=== PATIENT | male | born 1940 | race Caucasian/White ===

== ENCOUNTER 2019-03-20 15:50 | Inpatient (IN) | payer OTHER ==
[~2019-03-20] VITALS: Ht 190.5 cm; Wt 115.6 kg
[~2019-03-20 15:50] MED LIST: ADALAT CC60 MG PO; ALBUTEROL2.5 MG/31 INH; AMOXICILLIN 50500 MG PO; ANTACID650 MG PO; ASPIRIN325 PO; ATORVASTATIN CA40 MG PO; CARVEDILOL3.125 MG PO; CEFDINIR300 MG PO; CHILDREN'S ASPI81 M1 PO; COREG6.25 MG PO; COUMADIN 5 MG TA5 M1 PO; DOXYCYCLINE 10100 MG PO; DUONEB 2.5-0.5 M3 ML INH; DYNACIN100 MG PO; EPOGEN2000 UNIT/ SUBQ; ERYTHROMYCIN250 M1 PO; FLOMAX0.4 MG PO; GLIPIZIDE 10 MG10 MG PO; HUMALOG100 UNIT/1 SUBQ; IPRAT-ALBUT 0.5-3 ML INH; JANUVIA50 MG PO; KLOR-CON 1010 MEQ PO; LANTUS100 UNIT/M SUBQ; LASIX 40 MG TAB40 M2 PO; LEVOTHYROXINE100 MC1 PO; LINZESS145 MCG PO; MIRALAX17 GM PO; NEURONTIN 300300 M1 PO; NORCO 5-325 TA1 EACH PO; NYSTATIN15 G3 TOP; OMEPRAZOLE40 MG PO; OSTERA TABLET1 EAC1 PO; PREDNISONE 5 MG5 M1 PO; REGLAN 10 MG TA10 MG PO; ROXICODONE5 M2 PO; SENNA8.6 MG PO; SENOKOT-S1 TA1 PO; TRAMADOL 50 MG50 MG PO; ULORIC40 MG PO; VITAMIN D1000 UNI1 PO; XARELTO10 MG PO; ZESTRIL40 MG PO
[2019-03-20 16:41] VITALS: BP 91/45
--- NOTE | 2019-03-20 17:05 | NUR ---
pt received to room 356 as a tx from [facility]. pt w/o family or friends w/ him at this time. pt oriented to room, meal times and staff. pt w/ lue dialysis fistula and a peripheral iv access to rt ac (functional and w/o concern for at this time). pt received dialysis this am at [facility]. pt w/ a chest tube to lt ant, lower chest w/ drsg clean, dry and intact connected to a clamped [facility] dry suction water seal drainage system. no air leak noted to chest tube insertion site. pt denies co pain, n/v/d and soa. pt on o2 @ 2lt nc. pt noted to be incontinent of stool upon transfer to his bed. pt aox4. pt states he does not ambulate and denies being a diabetic.
[2019-03-20 19:36] VITALS: BP 93/39
--- NOTE | 2019-03-20 19:46 | NUR ---
RECEIVED REPORT FROM [facility], CHEST TUBE CLAMPED AND AT THIS TIME ACCORDING TO DR. MALDONADO REPORTED.
[2019-03-20 23:30] VITALS: BP 95/46
[2019-03-21 04:16] VITALS: BP 88/45
[2019-03-21 05:59] LABS: HEMATOCRIT 28.4 % (42.0-52.0); HEMOGLOBIN 9.5 gm/dL (14.0-18.0); MCH 33.3 pg (26.0-34.0); MCHC 33.6 g/dL (28.0-37.0); MCV 99.1 fL (80.0-100.0); RBC 2.86 mil/uL (4.50-6.00); RDW 15.6 % (10.5-14.5); WBC 7.4 thou/uL (4.0-11.0)
[2019-03-21 06:19] LABS: CALCIUM 8.2 mg/dL (8.5-10.1); CREATININE 5.2 mg/dL (0.7-1.3); MAGNESIUM 1.9 mg/dL (1.8-2.4); POTASSIUM 4.3 mmol/L (3.5-5.1)
[2019-03-21 06:40] VITALS: BP 94/58
[2019-03-21 08:12] VITALS: BP 94/35
--- NOTE | 2019-03-21 12:33 | NUR ---
INITIAL ASSESSMENT: Received consult for discharge planning. SW reviewed chart and spoke with nursing and attending physician. Pt was transferred to [facility] from [facility]. Pt has chest tubes in place. Pt may need VATS. SW met with pt at bedside. Introduced role of SW. Pt is alert/orientated. Pt states he normally lives at home with his and son. Prior to admission, pt was using a walker. 2 steps to enter the home. No steps inside. Pt was not on O2 prior to admission. Pt's PCP is Dr. Kalen Grewal. SW is following to assist as needed with discharge planning.
[2019-03-21 15:20] VITALS: BP 103/42
[2019-03-21 16:56] LABS: HEMATOCRIT 29.3 % (42.0-52.0); HEMOGLOBIN 9.9 gm/dL (14.0-18.0); MCH 33.7 pg (26.0-34.0); MCHC 33.9 g/dL (28.0-37.0); MCV 99.2 fL (80.0-100.0); PLATELET COUNT 161 thou/uL (150-400); RBC 2.96 mil/uL (4.50-6.00); RDW 15.9 % (10.5-14.5); WBC 7.9 thou/uL (4.0-11.0)
[2019-03-21 17:12] LABS: APTT 34.8 Seconds (24.5-32.8); PROTIME 10.7 Seconds (9.3-11.4)
[2019-03-21 17:15] LABS: ALBUMIN 2.1 g/dL (3.4-5.0); CALCIUM 8.2 mg/dL (8.5-10.1); POTASSIUM 4.2 mmol/L (3.5-5.1); TOTAL BILIRUBIN 0.5 mg/dL (<0.1-1.0); TOTAL PROTEIN 4.9 g/dL (6.4-8.2)
[2019-03-21 17:18] LABS: ABSOLUTE NEUTROPHILS 4.8 thou/uL (1.4-8.2); BURR CELLS OCCASIONAL
--- NOTE | 2019-03-21 18:04 | NUR ---
ASSUMED CARE @ 0700 03/21/19, PT ASSESSEMENTS AND VSS COMPLETE PER MST STATUS. PT ALERT AND ORIENTED X 4, PT ABLE TO FOLLOW COMMANDS TO BEST ABILITY. PT ON 2L OF 02 SATS IN THE HIGH 90'S WHEN SPOT CHECKED. PT IN AFIB, MICHELLE RHYTHM, EDEMA PRESENT, PLEASE SEE PROCESS INTERVENTIONS, PIG-TAIL -CHEST TUBE IN PLACE, TO -20CM SUCTION, PER DR NICE'S ORDERS. PT IS SUPPOSED TO HAVE SURGERY TOMMORROW, CONSENT SIGNED AND WITNESSED. NPO AFTER MIDNIGHT. HD PT, SCHEDULED TO HAVE DIALYIS TOMORROW. PLAN OF CARE- CONT TO MONITOR.
[2019-03-21 20:35] VITALS: BP 90/44
[2019-03-22] VITALS (10 sets, daily range): BP systolic 100–156; BP diastolic 27–57
[2019-03-22 05:36] LABS: HEMATOCRIT 28.3 % (42.0-52.0); HEMOGLOBIN 9.7 gm/dL (14.0-18.0); MCHC 34.3 g/dL (28.0-37.0); MCV 99.1 fL (80.0-100.0); RBC 2.86 mil/uL (4.50-6.00); RDW 15.7 % (10.5-14.5); WBC 7.8 thou/uL (4.0-11.0)
[2019-03-22 05:47] LABS: CALCIUM 8.4 mg/dL (8.5-10.1); CREATININE 6.4 mg/dL (0.7-1.3); MAGNESIUM 1.8 mg/dL (1.8-2.4); POTASSIUM 4.2 mmol/L (3.5-5.1)
--- NOTE | 2019-03-22 06:17 | NUR ---
PT MAKING SLOW PROGRESS TOWARDS GOALS. PT NOTED TO BE IN AFIB AND PER DAY RN HAS A HX OF CHRONIC AFIB. RATES IN 40-50'S OVER NIGHT. DENIED ANY PAIN OVERNIGHT. CHEST TUBE LEFT ANTEROLATERAL SIDE WITH 100ML OUTPUT OVERNIGHT.
--- NOTE | 2019-03-22 11:04 | HC ---
[facility] [place] [address] CONSULTATION Name: BELTRAN SPICER EDER Room #: 356-P ADM IN M.R.#: [id number] Admission: 03/20/19 Attend Phys: Jalen Rod MD Discharge: Date of : 39 Report #: [id number] THIS REPORT FOR: //name// CC: Alexander Rod DATE OF SERVICE: 03/21/2019 NEPHROLOGY CONSULTATION ATTENDING PHYSICIAN: Dr. Aparicio. REASON FOR CONSULTATION: End-stage renal disease requiring dialysis. HISTORY OF PRESENT ILLNESS: The patient with end-stage renal disease for the last year or two out in [place]. He has developed recurrent and persistent left pleural effusion. He has been hospitalized at [facility] [place], has now had a chest tube in and it continues to drain. He was transferred over here with the thought of possible video-assisted thoracoscopy and procedure. PAST MEDICAL HISTORY: Atrial fibrillation, previous coronary bypass with decreased left ventricular ejection fraction, previous history of stroke, chronic anemia, hip and knee replacements. HOME MEDICATIONS: Reported to be atorvastatin 40 mg daily, levothyroxine 100 mcg daily, Flomax 0.4 mg daily, omeprazole 20 mg daily, metoclopramide 10 mg a.c. and at bedtime, Neurontin 600 mg t.i.d. and Linzess 145 mcg daily. FAMILY HISTORY: Positive for cancer and heart disease. SOCIAL HISTORY: No cigarettes or alcohol. Retired. REVIEW OF SYSTEMS: GENERAL: He has been feeling reasonably well. EYES: His vision is okay. ENT: Hearing okay, swallows okay. No mouth sores. ENDOCRINE: Positive for diabetes and thyroid disease. RESPIRATORY: Somewhat short winded with exertion. CARDIAC: No current chest pain or swelling. GASTROINTESTINAL: No nausea, vomiting, diarrhea or bloody stools. GENITOURINARY: A little bit of hesitant stream. NEUROLOGIC: Apparent history of cerebrovascular accident with little residual. PHYSICAL EXAMINATION: [facility] [address] [place] [address] CONSULTATION Name: BELTRAN SPICER [facility] Room #: 356-[facility] IN .R.#: [id number] Admission: 03/20/19 Attend Phys: Jalen Rod MD Discharge: Date of : 39 Report #: [id number] GENERAL: This is a reasonably well-appearing gentleman, in no acute distress. SKIN: Otherwise, unremarkable. SKELETAL: Well developed, well nourished. No amputations. HEENT: Extraocular movements are full. No visual impairment. No scleral icterus. Mucous membranes moist. Tongue, buccal mucosa benign. NECK: Supple, no carotid bruits. CHEST: Decreased breath sounds in the left base. HEART: Irregularly irregular, somewhat distant. ABDOMEN: Soft and nontender. EXTREMITIES: Trace ankle edema. NEUROLOGIC: Grossly intact. Left arm AV fistula intact. LABORATORY DATA: The potassium is 4.3, the creatinine is 5.2. The hemoglobin is 9.5. ASSESSMENT AND PLAN: 1. End-stage renal disease. We will continue routine dialysis Tuesdays, , and Saturdays on his schedule. 2. Persistent left pleural effusion, may need VATS procedure. 3. History of coronary artery bypass. 4. Chronic atrial fibrillation. 5. History of cerebrovascular accident with little residual. 6. Longstanding diabetes mellitus. 7. Multiple orthopedic surgeries. 8. Chronic hypotension. <ELECTRONICALLY SIGNED> By: Andrew Ferrell MD 03/22/19 1104 0937 2208 Andrew Ferrell MD /nt
--- NOTE | 2019-03-22 12:37 | HC ---
[facility] [place] [address] CONSULTATION Name: BELTRAN SPICER EDER Room #: 356-P ADM IN M.R.#: [id number] Admission: 03/20/19 Attend Phys: Jalen Rod MD Discharge: Date of : 39 Report #: [id number] THIS REPORT FOR: //name// CC: Alexander Rod DATE OF SERVICE: 03/21/2019 INFECTIOUS DISEASE CONSULTATION REASON FOR CONSULTATION: I was asked to evaluate concerning left chest exudative effusion. HISTORY OF PRESENT ILLNESS: The patient is a 78-year-old transferred from [facility] [place] after being treated for recurrent left exudative pleural effusion. He had undergone thoracentesis and subsequent chest tube placement. He failed to improve and is now transferred for consideration of video-assisted thoracoscopy. On 03/01/2019, he was admitted with shortness of breath. He was found to have a large left pleural effusion. He has had two thoracentesis. First effusion was bloody with lymphocytic predominance. Cultures remained negative for bacteria, fungus and AFB. He had associated pulmonary infiltrate, treated with course of antibiotics. The effusion recurred and ultimately a chest tube placed. No fever, chills or sweats. No increased abdominal pain. No nausea, vomiting or diarrhea. Does have a history of chronic renal failure, diabetes, Yonkers's syndrome, atrial fibrillation, congestive heart failure. ALLERGIES: None known. MEDICATIONS: As noted on his MAR including most recently doxycycline. PAST MEDICAL HISTORY: Diabetes, osteoarthritis, iron deficiency anemia, end-stage renal disease, left AV fistula, congestive heart failure, stroke, coronary bypass grafting, peripheral neuropathy, prostate cancer, thyroid disease, bilateral total knee arthroplasty, diabetes, hypertension, cardiomyopathy, hyperlipidemia. FAMILY HISTORY: Noncontributory. SOCIAL HISTORY: Nonsmoker, no significant alcohol intake. REVIEW OF SYSTEMS: Ten-point review was negative other than what is described above. PHYSICAL EXAMINATION: [facility] [address] [place] [address] CONSULTATION Name: BELTRAN SPICER Jerad Room #: 356-P [facility] IN M.R.#: [id number] Admission: 03/20/19 Attend Phys: Jalen Rod MD Discharge: Date of : 39 Report #: [id number] VITAL SIGNS: He is afebrile and hemodynamically stable. GENERAL: He is alert and cooperative and pleasant, in no acute distress. EYES: Without scleral icterus. MOUTH: Without mucositis. NECK: Supple, with no thyromegaly or mass. CHEST: Clear anteriorly with decreased breath sounds in the left posterior base. Left chest tube in place with no surrounding erythema or fluctuance. HEART: Regular without appreciable murmur, gallop or rub. ABDOMEN: Soft and nontender with no hepatosplenomegaly or mass. BACK: Nontender, without CVA tenderness. EXTREMITIES: With left upper extremity AV fistula. NEUROLOGIC: Strength in upper and lower extremities was normal. Cranial nerves intact. Mood normal with no evidence of depression or anxiety. SKIN: Without decubitus or rash. No palpable adenopathy. LABORATORY STUDIES: Hemoglobin 9.5, WBC 7.4, platelet 163,000. Creatinine 5.2. Chest x-ray, left effusion with associated atelectasis. IMPRESSION: Recurrent exudative left-sided pleural effusion. There is suggestion of associated infiltrate versus atelectasis. This is in the setting of anticoagulation for chronic atrial fibrillation. He also has end-stage renal disease. He has diabetes, hypothyroidism, benign prostatic hyperplasia, and history of prostate cancer. Specific etiology of the recurring effusion is not yet defined. Recommend VATS as planned for tomorrow, will stay off antibiotics at this point. We will repeat cultures from tissue and fluid analysis. Await pathology report. Culture for bacteria, fungus and AFB. Obtain microbiology reports from [facility] [place]. Follow serial laboratory studies. <ELECTRONICALLY SIGNED> By: Erwin Gallardo MD 03/22/19 1237 [id number] Erwin Gallardo MD /nt
--- NOTE | 2019-03-22 14:10 | NUR ---
SW reviewed chart and spoke with nursing and attending physician. Pt to have VATS today. Therapy to be ordered after procedure. SW is following to assist as needed with discharge planning.
--- NOTE | 2019-03-22 15:06 | NUR ---
ASSUMED PATIENT CARE AT 0700. A/ OX 4. STARTED HD AT 0715. TOLERATED WELL. WENT TO PRO OP AT 1430.
[2019-03-22 20:25] LABS: HEMATOCRIT 31.1 % (42.0-52.0); HEMOGLOBIN 10.5 gm/dL (14.0-18.0); MCH 33.4 pg (26.0-34.0); MCHC 33.9 g/dL (28.0-37.0); MCV 98.7 fL (80.0-100.0); RBC 3.15 mil/uL (4.50-6.00); RDW 15.6 % (10.5-14.5); WBC 10.3 thou/uL (4.0-11.0)
--- NOTE | 2019-03-22 22:58 | NUR ---
PT ARRIVED IN ICU FROM OR AT 2100. REPORT FROM [facility] AT 2034. PT LETHARGIC AND SLIGHTLY CONFUSED UPON ARRIVAL. WHEN ASKED, PT C/O 10/10 PAIN. L VAT SITE AND CHEST TUBE SITE INTACT. CHEST TUBE TO SUCTION AND IS PATENT, NO LEAK. GIVEN SLEEP ROOM FOR THE NIGHT. PT HAS BEEN SLEEPING SINCE BEING SETTLED IN, AND CONTINUES TO BE DROWSY WHEN AWAKENED. PO MEDS HELD D/T LETHARGY. WILL CONTINUE TO MONITOR.
[2019-03-23] VITALS (35 sets, daily range): BP systolic 114–173; BP diastolic 38–57
[2019-03-23 05:25] LABS: HEMATOCRIT 29.1 % (42.0-52.0); HEMOGLOBIN 9.9 gm/dL (14.0-18.0); MCH 33.6 pg (26.0-34.0); MCHC 33.9 g/dL (28.0-37.0); MCV 99.1 fL (80.0-100.0); RBC 2.94 mil/uL (4.50-6.00); RDW 15.4 % (10.5-14.5); WBC 8.5 thou/uL (4.0-11.0)
[2019-03-23 05:45] LABS: CALCIUM 7.9 mg/dL (8.5-10.1); MAGNESIUM 1.8 mg/dL (1.8-2.4); POTASSIUM 5.4 mmol/L (3.5-5.1); TOTAL BILIRUBIN 0.6 mg/dL (<0.1-1.0); TOTAL PROTEIN 4.9 g/dL (6.4-8.2)
--- NOTE | 2019-03-23 06:30 | NUR ---
PT ORIENTED X4, BUT REMAINS FAIRLY DROWSY. THIS MORNING, PT DENIES HAVING ANY PAIN. CHEST TUBE HAD 100 CC OUT SINCE ARRIVAL IN ICU. SHARMIN DRESSING OVER VAT SITE REMAINS DRY AND INTACT. WILL CONTINUE TO MONITOR.
--- NOTE | 2019-03-23 07:13 | NUR ---
PATIENT TRANSFERRED TO ICU, WILL AWAIT NEW OT ORDERS ONCE PATIENT IS MEDICALLY STABLE.
--- NOTE | 2019-03-23 13:51 | EKG ---
[place] [address] [facility] [place] [address] ELECTROCARDIOGRAM REPORT Name: MARIANGEL SPICERGera GAINES Room #: 247-P ADM IN M.R.#: [id number] Admission: 03/20/19 Attend Phys: Jalen Rod MD Discharge: Date of : 39 Report #: [id number] THIS REPORT FOR: //name// [facility] Test Date: 2019-03-21 Test Time: 17:20:42 Pat Name: BELTRAN SPICER Department: Room: [facility] Gender: M Piano Teacher: Mike ROSSI : 1940 Requested By: Kalen Martinez Order Number: [id number] MD: Marco A Bernard Measurements Intervals [place] Rate: 54 P: CO: QRS: -38 QRSD: 141 T: -22 QT: 456 QTc: 433 Interpretive Statements Atrial fibrillation Right bundle branch block Probable inferior infarct, age indeterminate No previous ECG available for comparison Electronically Signed On 03-23-2019 13:50:58 CDT by Marco A Bernard [email or web address] <ELECTRONICALLY SIGNED> By: Marco A Bernard MD, [facility] 03/23/19 1350 1720 19 Marco A Bernard MD, FACC /EPI
--- NOTE | 2019-03-23 15:56 | NUR ---
KYLEE reviewed chart and spoke with nursing and attending physician. Pt is s/p left thoracotomy with decortication. Chest tube in tact. Therapy ordered to evaluate pt for recommendation for discharge needs. SW met with pt at bedside. Pt is on hemodialysis on T-R-S. Pt states he goes to a [facility] close to home in [place]. SW will follow up with [facility] on Tuesday. Pt has orders to transfer out of ICU. No weeken discharge planned. KYLEE is following to assist as needed with discharge planning.
--- NOTE | 2019-03-24 00:15 | NUR ---
PT A&O X4 AND DROWSY. DIFFICULTY OBTAINING IV ACCESS AFTER EJ WAS LEAKING. VASCULAR ACCESS TEAM ABLE TO REPOSITION EJ, SO THAT IT WAS ABLE TO BE USED. WHEN LOOKING FOR PIV, IV NURSE FOUND CLOT FORMATION IN R UA. Adrian MYERS CHEMICAL TEST ENGINEER NOTIFIED AND ORDER OBTAINED FOR US OF R ARM IN AM. PT C/O OF PAIN AT VAT AND CT SITE, FENTANYL GIVEN. PT MOVED TO CCU AT 0000. REPORT GIVEN TO WILFRID AT 2300. MULTIPLE ATTEMPTS TO REACH WERE MADE, EVENTUALLY MESSAGE WAS LEFT STATING THAT WE WERE MOVING HER TO ROOM 218. ALSO, PT CLAIMS THAT HE HAD GLASSES HERE, BUT NONE WERE FOUND AMOUNG HIS BELONGINGS. UNABLE TO ASK ABOUT THEM.
[2019-03-24 00:22] VITALS: BP 106/32
[2019-03-24 03:06] LABS: HEP B SURFACE Ab(ANTI-HBS Non Reactive (()); HEPATITIS B SURFACE AG Negative (Negative)
[2019-03-24 04:57] VITALS: BP 114/33
[2019-03-24 05:33] LABS: HEMATOCRIT 30.6 % (42.0-52.0); HEMOGLOBIN 10.2 gm/dL (14.0-18.0); MCH 32.9 pg (26.0-34.0); MCHC 33.3 g/dL (28.0-37.0); MCV 98.7 fL (80.0-100.0); RBC 3.1 mil/uL (4.50-6.00); RDW 15.9 % (10.5-14.5); WBC 10.2 thou/uL (4.0-11.0)
[2019-03-24 05:52] LABS: CALCIUM 8.1 mg/dL (8.5-10.1); MAGNESIUM 1.8 mg/dL (1.8-2.4); POTASSIUM 5.3 mmol/L (3.5-5.1)
[2019-03-24 05:56] LABS: CREATININE 5.3 mg/dL (0.7-1.3)
--- NOTE | 2019-03-24 08:36 | NUR ---
ASSUME CARE AT 0000 FROM ICU STAFF. PT STABLE. COMPLAINS OF INCISIONAL PAIN. FENTANYL GIVEN FOR PAIN. LEFT CHEST TUBE IN PLACE/DRESSING REINFORCED ASSESSMENT CHARTED. POOR TOLERANCE TO ACTIVITY. PROGRESSING MODERATELY TO POC. PLAN IS TO CONTINUE TO MONITOR INCISION SITE AND OPREVENT INFECTION. WILL CONTINUE TO MONITOR AND FOLLOW WITH POC
[2019-03-24 09:03] VITALS: BP 107/35
--- NOTE | 2019-03-24 12:15 | O ---
[facility] [place] [address] OPERATIVE REPORT Name: BELTRAN SPICER EDER Room #: 218-P ADM IN M.R.#: [id number] Admission: 03/20/19 Attend Phys: Jalen Rod MD Discharge: Date of : 39 Report #: [id number] THIS REPORT FOR: //name// CC: Alexander Rod DATE OF SERVICE: 03/22/2019 PREOPERATIVE DIAGNOSIS: Empyema, left chest. POSTOPERATIVE DIAGNOSIS: Trapped lung, left chest, presumably post-empyema. PROCEDURES PERFORMED: Bronchoscopy, left video-assisted thoracoscopy, left thoracotomy with decortication. SURGEON: Kalen Martinez M.D. TRANSIT AUTHORITY POLICE OFFICER: BA Avendaño. ANESTHESIA: General. INDICATIONS: The patient is a 78-year-old transferred from [facility] with a persistent left pleural effusion. The patient had 2 thoracenteses of approximately 2 liters of exudative fluid. Pigtail catheter was left in place and there has been persistent pleural drainage and the patient was sent here for evaluation and treatment. FINDINGS AND TECHNIQUE: After general anesthesia was established, flexible diagnostic bronchoscopy was performed. No specific endobronchial lesions were noted, however, the tracheobronchial tree was packed with thick white secretions and it took some time to remove these tenacious secretions. The double lumen tube was placed and its position ascertained endoscopically. The patient was positioned with left side up. Exposure was obtained through typical video-assisted thoracoscopy ports. We were unable to enter the chest because the lung was adherent to the chest wall; therefore, an incision was made to perform a posterolateral thoracotomy. Chest was entered through an appropriate interspace. The visceral and parietal pleura were fused together and there was a fibrous peel over the lung that was preventing complete expansion. There were several areas of loculated fluid, but largely the problem was trapped lung. We performed a decortication by removing the fibrous envelope from the upper and lower lobe using a combination of sharp and blunt dissection. The visceral peel [address] [address] OPERATIVE REPORT Name: BELTRAN SPICER [facility] Room #: 218-P ADM IN M.R.#: [id number] Admission: 03/20/19 Attend Phys: Jalen Rod MD Discharge: Date of : 39 Report #: [id number] was removed and submitted for pathology. When we had freed the lung satisfactorily, the chest was irrigated with antibiotic solution. Two chest tubes were brought through separate stab wounds. The chest was closed in layers and the patient was taken to the recovery area in satisfactory condition having tolerated the procedure well. All counts were reported as correct. <ELECTRONICALLY SIGNED> By: Kalen Martinez MD 03/24/19 1215 1645 1710 Kalen Martinez MD /nt
[2019-03-24 16:49] VITALS: BP 85/35
--- NOTE | 2019-03-24 16:59 | NUR ---
ASSUMED CARE OF PATIENT AT 0700. PATIENT IS A&O X 4. FLAT AFFECT. PATIENT COMPLAINS OF LEFT SIDED FLANK PAIN AT INCISION SITE. CHEST TUBE IN PLACE AND CHAMBER. ASSESSMENT CHARTED. PATIENT IS RESTING COMFORTABLY AND CONTROLLING PAIN WITH IV FENTANYL. IS AT BEDSIDE. PATIENT IS APPROPRIATELY REQUESTING PAIN MEDICINE. PATIENT AWAITING HEMODIALYSIS THIS AFTERNOON. CONTINUE WITH POC.
[2019-03-24 19:59] VITALS: BP 127/56
[2019-03-25] VITALS (7 sets, daily range): BP systolic 75–154; BP diastolic 35–87
--- NOTE | 2019-03-25 01:29 | NUR ---
HEMO DIALYSIS COMPLETED AT 2245HRS. 1.5L FLUID REMOVED. PT TOLERATED HEMO DIALYSIS WELL. PT RESTING COMFORTABLY.
--- NOTE | 2019-03-25 05:28 | NUR ---
ASSUMED CARE OF PT AT 1900HRS. PT IS AOX4 AND LETS NEEDS BE KNOWN. FALL PRECAUTION IN PLACE. PT IS ANURIC THUS UA CANNOT BE COLLECTED. DIALYSIS SCHEDULE IS TUESDAY, TUESDAY AND TUESDAY. DIALYSIS COMPLETED THIS SHIFT. CHEST TUBE INPLACE AND NO AIR LEAK NOTED WITH -20 SUCTION. PT DID NOT REQUEST PAIN MEDS. PT WAS COMFORTABLE AND SLEPT PART OF THE SHIFT. NO S/S OF ACUTE DISTRESS. WILL CONTINUE TO MONITOR.
--- NOTE | 2019-03-25 18:29 | NUR ---
ASSESSMENT CHARTED - MEDS PER SEP - GIVEN LORTAB X 2 DOSES FOR CO'S OF PAIN WITH YANCY EFFECT - PATIENT WITH CHEST TUBES REMAINING INSITU TO LEFT CHEST AREA. NO BUBBLING OR TIDDLING NOTED IN [facility]. PT MARY DIET AND FLUIDS. NO CO'S OF NAUSEA. DRESSING TO DIALYSIS CATH REMAINS C/D/I. PT WTH MOSIT COUGH AT TIMES - SMALL AMOUNT OF THICK SPUTUM EXPECTORATED. PT WITH NO CO'S AT THE PRESENT TIME.
[2019-03-26] VITALS (9 sets, daily range): BP systolic 87–117; BP diastolic 37–57
[2019-03-26 04:00] LABS: HEMATOCRIT 25.2 % (42.0-52.0); HEMOGLOBIN 8.5 gm/dL (14.0-18.0); MCH 33.5 pg (26.0-34.0); MCHC 33.8 g/dL (28.0-37.0); RBC 2.54 mil/uL (4.50-6.00); RDW 15.2 % (10.5-14.5); WBC 8.4 thou/uL (4.0-11.0)
[2019-03-26 04:23] LABS: INR 1.1; PROTIME 11.3 Seconds (9.3-11.4)
[2019-03-26 04:33] LABS: ALBUMIN 1.8 g/dL (3.4-5.0); CALCIUM 7.7 mg/dL (8.5-10.1); CREATININE 4.8 mg/dL (0.7-1.3)
--- NOTE | 2019-03-26 04:44 | NUR ---
ASSESSMENT DOCUMENTED.PT RESTING IN NO ACUTE DISTRESS AT THIS TIME.A/OX3 WITH FORGETFULNESS.VSS.HYPOTENSIVE THIS SHIFT W/SBP IN 70S.PT WAS PLACED ON TRENDELENBURG POSITION W/O IMPROVEMENT,PT SEEMS VERY LETHARGIC.FOLLOW COMMANDS APPROPRIATELY,NO FEVER.CUSTOMER COUNTER REPRESENTATIVE NOTIFIED A BOLUS OF 500CC WAS ORDERED.BLOOD PRESSURE IMPROVED TO 90S-100S SYSTOLICALLY.RA WITHOUT RESP DISTRESS.HAVING CONGESTED COUGH WITH WEAK COUGH,REFUSING BREATHING TREATMENTS.CHEST TUBE IN PLACE TO SUCTION -20CM.SHARMIN DRESSING INTACT.SUCTION PROVIDED.PT DENIES PAIN OR ANY OTHER DISCOMFORT AT THIS TIME.WILL CONT TO MONITOR PER POC.
--- NOTE | 2019-03-26 16:06 | PATH ---
[facility] [address] [place] [address] PATHOLOGY RPT PROCEDURE Name: MARIANGEL SPICERGera GAINES Room #: 218-P ADM IN M.R.#: [id number] Admission: 03/20/19 Date of : 39 Discharge: Report #: [id number] Path Case #: [id number] [facility] Accession Number: [id number] . 01 Material submitted: . pleura - LEFT PLEURAL EXUDATE/PEEL. Modifiers: left . 01 Clinical history: . Left pleural effusion . 02 Diagnosis: "Left pleural exudate/peel", decortication/pleural resection: - Pleura with reactive changes including acute and chronic inflammation, necrosis, edema, fibroblastic proliferation and granulation tissue consistent with empyema. (CLW:lindy; 03/26/2019) QMS/03/26/2019 . 02 Electronically signed: . Ramona Jameson MD, Pathologist NPI- [id number] . 01 Gross description: . The specimen is received in formalin, labeled "Doug Spicer, left pleural exudate/peel". Received are multiple segments of pale chopra to pink-schaeffer pleural tissue measuring 6.1 x 5.5 x 1.0 cm in aggregate dimensions. No distinct nodules or lesions are noted grossly. Exudate is not grossly identified. The specimen is submitted representatively in cassette A1. (CAA; 03/23/2019) QAC/QAC . 02 Pathologist provided ICD-10: R09.1, J86.9 . 02 CPT . 159033 Specimen Comment: A courtesy copy of this report has been sent to Specimen Comment: [phone], , . Specimen Comment: Report sent to ,DR SORENSON / DR RODRIGUEZ Performed at: [address], [place], [place] [id number] MD Thomas Carrasco MD Phone: [phone] Performed at: [address] [id number] MD Jamee Palacios MD Phone: [phone]
--- NOTE | 2019-03-26 19:00 | NUR ---
Pt drowsy today. Slept intermittently. Trouble answering orientation questions but able to communicate needs. OT/PT worked with pt. OOB to chair. Heavy return back to bed. Pt unable to support his weight without assist of two people. here near end of day and assisted with dinner. Report to oncoming RN.
[2019-03-27 00:15] VITALS: BP 97/52
--- NOTE | 2019-03-27 03:34 | NUR ---
ASSESSMENT DOCUMENTED.PT BEEN SLEEPING MOST OF THE NIGHT.EASY TO AROUSE.A/OX2-3 WITH CONFUSION IN AND OUT.FOLLOWS COMMANDS APPROPRIATELY BUT GET IRRITABLE DURING ASSESSMENT AND WHILE ASKING QUESTION.PT JUST WANTS TO BE LEFT ALONE TO SLEEP.VSS.RA W/ RESP DISTRESS.REMAINS AFIB ON MONITOR.ANURIC.DIALYSIS SCHEDULED FOR TODAY.SHARMIN DRESSING INTACT,CT SITE DRESSING INTACT,NO DRAINAGE NOTED.PT/OT ON BOARD.PT PROGRESSING SLOWLY TO DISCHARGE GOAL.WILL CONT TO MONITOR PER POC.
[2019-03-27 04:55] LABS: INR 1.1; PROTIME 11.4 Seconds (9.3-11.4)
[2019-03-27 05:06] VITALS: BP 109/78
[2019-03-27 07:43] VITALS: BP 111/50
--- NOTE | 2019-03-27 09:02 | NUR ---
ASSUMED CARE OF PT FOR DAY SHIFT, A&0X4, A LITTLE RESISTANT TO ANSWER QUESTIONS, STATES THEM IN AN IRRITABLE TONE, THEN IMMEDIATELY APOLOGIZES. SAID HE DIDN'T GET ANY SLEEP. BFAST AT BEDSIDE YET HE'D RATHER SLEEP. IN THE MIDST OF DIALYSIS, C/O PAIN IN BACK, HELPED HIM REARRANGE HIS POSITION. CARDIAC MONITORED, ENCOURAGED HIM TO USE CALL LIGHT FOR ANY NEEDS AND SHOWED HIM HOW TO TURN ON TELE, HE WANTED GO [facility]. WILL CONTINUE TO MONITOR
--- NOTE | 2019-03-27 10:47 | NUR ---
met with patient who was rec dialysis. Sp with and son who entered room. Discussed post acute care. Patient reports he has been at [facility] in past. He is agreeable for referral to [facility]. Patient reports they transported to/from dialysis with no charge. Casemgt following.
[2019-03-27 12:00] VITALS: BP 135/54
--- NOTE | 2019-03-27 13:17 | NUR ---
[facility] TO REVIEW PT NEEDING SKILLED STAY. DCP TO FOLLOW.
[2019-03-27 17:05] VITALS: BP 97/55
[2019-03-27 19:15] VITALS: BP 131/64
[2019-03-28 04:05] VITALS: BP 91/47
[2019-03-28 05:08] LABS: INR 1.2; PROTIME 12.1 Seconds (9.3-11.4)
--- NOTE | 2019-03-28 05:08 | NUR ---
PATIENTS CARES WAS ASSUMED AT SHIFT CHANGE. PATIENT WAS ASSESSED AND MEDS WERE PASSED. HOURLY ROUNDING WAS DONE, PATIENT DID APPER TO SLEEP WELL THE MAJORITY OF THIS SHIFT. PATIENT IS A MAX ASSIST TO TRANSFER. BED ALARM IS ON. THE BED IS IN A LOW AND LOCKED POSITION.
[2019-03-28 08:25] VITALS: BP 110/46
--- NOTE | 2019-03-28 11:09 | NUR ---
WOUND CONSULT; CONSULTED FOR A WOUND TO THE RIGHT BUTTOCK. THE WOUND HAS LINEAR LINES SUGGESTIVE OF FRICTION SHEARING. THE RIGHT HIP HAS AN AREA OF BLANCHABLE ERYTHEMA. THE CENTER OF THIS AREA IS DARKER AND UNABLE TO DETERMINE IF IT IS A DTI AT HIS TIME, IT IS SUSPICIOUS OF A DTI. RECOMMENDATIONS ZGUARD TO RIGHT BUTTOCKS COVER WITH A BOARDERED FOAM. OBSERVE THE RIGHT HIP FOR NOW. DISCUSSED WITH ZACK
[2019-03-28 11:45] VITALS: BP 98/44
--- NOTE | 2019-03-28 14:27 | NUR ---
FOLLOWING FOR DC PLANNING. CLINICAL INFO REVIEWED AND PER DR. KINCAID, PT MEDICALLY STABLE FOR DC TO SKILLED REHAB. PT CHOICE IS [facility] AND REFERRAL FAXED 03/17/19 BUT HAVE BEEN UNSUCCESSFUL ON SEVERAL ATTEMPTS TO CNNECT WITH ADMISSIONS DEPT FOR DECISION ON ACCEPTANCE. CM DIRECTOR ATTEMPTED TO REACH OUT TO FACILITY D.O.N. BUT NOT REACHED. RAFFI FROM [facility] AT [facility] AND ABLE TO ASSIST WITH NOTIFYING SILVA IN ADMISSIONS AT [facility]. SILVA NOTIFIED DC CLAMSHELL ENGINEER AT 1400 SHE HAD REFERRAL AND WILL HAVE INTELLIGENCE AGENT AND CALL WITH DECISION TODAY. WILL NEED INSURANCE AUTH FOR SKILLED REHAB.
[2019-03-28 16:09] VITALS: BP 105/42
--- NOTE | 2019-03-28 17:42 | NUR ---
ASSESSMENT CHARTED - MEDS PER SEP - NO CO'S OF PAIN OR NAUSEA - MARY DIET AND FLUIDS. SEEN BY PHYS THERAPY THIS AM - PT UP ON THE SIDE OF THE BED - DID NOT GET TO THE CHAIR REPORTED HE DID YESTERDAY - BREAKDOWN TO BOTTOM NOTED - MERCHANDISE BUYER NOTIFIED DRESSING APPLIED AND TO BE CHANGED DAILY. SHARMIN DRESSING REMAINS INSITU - DRESSING TO L CHEST TUBE SITE C/D/I. PT HAS BEEN SLEEPING ALOT OF THE DAY. PT DIFFICULT TO ASSESS MENTATION LEES DUE TO BEING [place]. NOT [place]USS WHAT PATIENT ACTUALLY HEARS. NO CO'S AT THE PRESENT TIME.
[2019-03-28 19:53] VITALS: BP 131/37
[2019-03-29 05:15] VITALS: BP 124/49
[2019-03-29 05:21] LABS: INR 1.3; PROTIME 13.8 Seconds (9.3-11.4)
--- NOTE | 2019-03-29 05:49 | NUR ---
PATIENTS CARES WERE ASSUMED AT SHIFT CHANGE. PATIENT WAS ASSESSED AND MEDS WERE PASSED. PATIENT SLEEP THE MAJRITY OF THIS SHIFT. HOURLY ROUNDING WAS DONE THE BED IS IN A LOW AND LOCKED POSITION. THE BED ALARM IS ON.
[2019-03-29 08:14] VITALS: BP 118/49
[2019-03-29 12:30] VITALS: BP 114/47
[2019-03-29 14:19] VITALS: BP 118/49
[2019-03-29 14:35] VITALS: BP 118/49
--- NOTE | 2019-03-29 14:40 | NUR ---
Auth confirmed kaycee Gil in admissions at [facility]. They can accept the pt this evening around 5:30 to 6pm. [facility] arranged for 5:30pm pickup due to pt's weakness after dialysis today. He requires max assist of several people for transfers and would not be able to sit in a w/c van for the duration of the trip. Pt's dialysis clinic is aware of dc and to resume him on Tuesday. He goes to the [facility] clinic with a 9:30am chair time T--Sat. [facility] to setup transport. The clinic has a lift for transfers. DC technical planner to fax final orders to both the SNF and the clinic. Nursing and the pt updated as well as the attending. Nursing to call report to [phone]. Chart copy to be sent with the pt.
--- NOTE | 2019-03-29 14:40 | NUR ---
WOUND CARE FOLLOW UP; THE WOUNDS HAVE IMPROVED SINCE LAST EVAL. LESS DRAINAGE,LESS ERYTHEMA TO THE PERIWOUND. THE RIGHT HIP AREA THAT WAS SUGGESTIVE A DTI IS SMALLER AND I AM HOPEFUL IT WON'T ADVANCE. THE PATIENT STATES THESE AREAS FEEL BETTER. RECOMMENDATION; D/C THE FOAM DRESSING TO THE RIGHT BUTTOCK AND USE ONLY ZGUARD. DISCUSSED WITH STAFF
[2019-03-29] MEDS ORDERED: LIPITOR40 MG PO (14:52)
[2019-03-29] MEDS ORDERED: MIRALAX17 GM PO (14:52)
[2019-03-29] MEDS ORDERED: MUPIROCIN22 GM NASAL (14:52)
[2019-03-29] MEDS ORDERED: IPRAT-ALBUT 0.5-3 ML INH (14:52)
[2019-03-29] MEDS ORDERED: TYLENOL325 MG PO (14:52)
[2019-03-29] MEDS ORDERED: COUMADIN 5 MG TA5 M1 PO (14:52)
[2019-03-29] MEDS ORDERED: COUMADIN 2 MG TA2 M1 PO (14:52)
--- NOTE | 2019-03-29 15:51 | NUR ---
FAXED DC ORDERS/SUMMARY TO [facility] LEFT MSG WITH ALIREZA IN ADM THAT DC ORDERS FAXED AND TRANSPORTATION ARRANGED BY AMBULANCE ([facility]) FOR [id number]. LEFT MSG WITH PT'S ON VOICEMAIL AND SPOKE WITH PT'S SON OF DC AND TIME OF TRANSPORT. ALSO FAXED DIALYSIS FLOW SHEETS AND DC SUMMARY TO [facility].
--- NOTE | 2019-03-29 17:30 | NUR ---
ASSUMED CARE AT SHIFT CHANGE, ALERT X3, AND FORGETFUL. VSS. SHARMIN DRESSING REMOVED PER ORDERS. Q2 POSITIONED AND PATIENT GIVEN PARTIAL BATH TODAY. DIALIZED TODAY. REPORT GIVEN TO ZACK PRESCOTT AND PATIENT DISCHARGED TO [facility]
--- NOTE | 2019-03-31 12:36 | HC ---
[facility] [place] [address] CONSULTATION Name: BELTRAN SPICER EDER Room #: 218-P [facility] M.R.#: [id number] Admission: 03/20/19 Attend Phys: Jalen Rod MD Discharge: 03/29/19 Date of : 38 Report #: [id number] THIS REPORT FOR: //name// CC: Alexander Rod DATE OF SERVICE: 03/21/2019 REASON FOR CONSULT: The patient is an 79-year-old transferred from [facility]. The patient was treated for an exudative left pleural effusion. The patient had 2 thoracenteses and finally had a chest catheter placement. The chest catheter continued to drain approximately 200-300 mL a day and the lung had not fully reexpanded and the patient was sent here for our consideration. Cultures were always negative. PAST MEDICAL HISTORY: Significant for diabetes, osteoarthritis, iron deficiency anemia, end-stage renal disease, on dialysis through a left AV fistula, heart failure, stroke, previous coronary artery bypass surgery, prostate cancer, thyroid disease, hypertension, hyperlipidemia. ALLERGIES: None known. MEDICATIONS: As noted on the MAR including doxycycline. FAMILY HISTORY: Not significant for empyema. SOCIAL HISTORY: Denies tobacco use. No significant alcohol. REVIEW OF SYSTEMS: RESPIRATORY: Positive for shortness of breath, which led to the discovery of the effusion. The patient appears to have been in and out of the hospital with pneumonia prior to the onset of the pleural effusion. Past history is also significant for chronic atrial fibrillation. It is not clear whether the patient was anticoagulated for this at home. Other details of the review of systems per the medical history of Dr. Aparicio. PHYSICAL EXAMINATION: VITAL SIGNS: Temperature 36.7, heart rate 53, blood pressure 94/35. HEENT: No scleral icterus. There is a mild arcus. NECK: No mass, no bruit. [facility] [address] [place] [address] CONSULTATION Name: BELTRAN SPICER EDER Room #: 218-P [facility].#: [id number] Admission: 03/20/19 Attend Phys: Jalen Rod MD Discharge: 03/29/19 Date of : 38 Report #: [id number] CHEST: Clear on the right. Decreased breath sounds on the left. HEART: Rhythm regular. ABDOMEN: Soft. EXTREMITIES: Trace edema. No clubbing or cyanosis. NEUROLOGIC: No motor or sensory dysfunction. MUSCULOSKELETAL: No asymmetry or deformity. PSYCHIATRIC: The patient is oriented and appropriate, but appears to be somewhat chronically ill and weak. SKIN: No rash or infection. We note chest tube from left chest attached to atrium canister. IMPRESSION: The patient has what appears to be a trapped left lung with possible empyema. We have recommended thoracoscopy with possible decortication as appropriate. Risks and details of this were discussed. Options and alternatives were reviewed. The patient understands all of this and wishes to proceed. Thank you for the consult. <ELECTRONICALLY SIGNED> By: Kalen Martinez MD 03/31/19 1236 [id number] Kalen Martinez MD /nt
== END 2019-03-29 18:28 | DRG 163 ==
LOC: 3W 15:50 → 2N 16:34 → ICU 16:34 → 3W 17:54 → TBA 03-22 14:49 → ICU 03-22 22:22 → 2N 03-23 23:51
PROVIDERS: Internal Medicine; Internal Medicine Nephrology; Nurse Practitioner Family; Physician Assistant; Surgery Vascular Surgery; ADMIT Internal Medicine
DX: J86.9 Pyothorax without fistula (principal); N18.6 End stage renal disease; E43 Unspecified severe protein-calorie malnutrition; J90 Pleural effusion, not elsewhere classified; I42.9 Cardiomyopathy, unspecified; I13.2 Hypertensive heart and chronic kidney disease with heart failure and with stage 5 chronic kidney disease, or end stage renal disease; I82.611 Acute embolism and thrombosis of superficial veins of right upper extremity; I50.22 Chronic systolic (congestive) heart failure; I48.2 Chronic atrial fibrillation; E11.51 Type 2 diabetes mellitus with diabetic peripheral angiopathy without gangrene; E03.9 Hypothyroidism, unspecified; E11.22 Type 2 diabetes mellitus with diabetic chronic kidney disease; N40.0 Benign prostatic hyperplasia without lower urinary tract symptoms; E11.43 Type 2 diabetes mellitus with diabetic autonomic (poly)neuropathy; K31.84 Gastroparesis; I25.10 Atherosclerotic heart disease of native coronary artery without angina pectoris; K21.9 Gastro-esophageal reflux disease without esophagitis; D63.8 Anemia in other chronic diseases classified elsewhere; E78.5 Hyperlipidemia, unspecified; M19.90 Unspecified osteoarthritis, unspecified site; I95.9 Hypotension, unspecified; E87.5 Hyperkalemia; J94.1 Fibrothorax; E11.42 Type 2 diabetes mellitus with diabetic polyneuropathy; Z96.653 Presence of artificial knee joint, bilateral; Z85.46 Personal history of malignant neoplasm of prostate; Z79.01 Long term (current) use of anticoagulants; Z95.1 Presence of aortocoronary bypass graft; Z68.31 Body mass index [BMI] 31.0-31.9, adult; Z99.2 Dependence on renal dialysis; Z86.73 Personal history of transient ischemic attack (TIA), and cerebral infarction without residual deficits; Z79.899 Other long term (current) drug therapy; Z80.8 Family history of malignant neoplasm of other organs or systems; Z82.49 Family history of ischemic heart disease and other diseases of the circulatory system
CPT/HCPCS: 10081; 10203; 10779; 10879; 32100; 47405; 50010; 50101; 50386; 50417; 51301; 52265; 54118; 56524; 56525; 56526; 56527; 56528; 57116; 62110; 62900; 65020; 65040; 65045; 65105; 70005

== ENCOUNTER 2019-04-06 01:12 | Observation (INO) | payer OTHER ==
[~2019-04-06] VITALS: Ht 190.5 cm; Wt 114.4 kg
[~2019-04-06 01:12] MED LIST changes: +COUMADIN 2 MG TA2 M1 PO; +LIPITOR40 MG PO; +MUPIROCIN22 GM NASAL; +TYLENOL325 MG PO
[2019-04-06 02:50] VITALS: BP 89/47
--- NOTE | 2019-04-06 04:24 | NUR ---
PATIENT DIRECTLY ADMITTED FROM [facility]. ALERT TO SELF ONLY, RE-ORIENTED TO TIME/PLACE. NO COMPLAINTS OF DISCOMFORT OR CHEST PAIN. A-FIB ON INSTALLATION HELPER. TURNED Q2H. PATIENT EDUCATED PLANER OPERATOR / GRADER LIGHT AND FALL PRECAUTIONS. PLAN OF CARE DISCUSSED. NO SIGNS OF ACUTE DISTRESS NOTED AT THIS TIME. WILL CONTINUE TO MONITOR.
[2019-04-06 06:07] LABS: CALCIUM 8.2 mg/dL (8.5-10.1); CREATININE 3.4 mg/dL (0.7-1.3); MAGNESIUM 1.7 mg/dL (1.8-2.4); POTASSIUM 3.9 mmol/L (3.5-5.1)
[2019-04-06 07:43] VITALS: BP 115/43
[2019-04-06 10:34] LABS: HEMOGLOBIN 8.7 gm/dL (14.0-18.0)
[2019-04-06 10:36] LABS: HEMATOCRIT 26.9 % (42.0-52.0); MCH 32.2 pg (26.0-34.0); MCHC 32.3 g/dL (28.0-37.0); MCV 99.5 fL (80.0-100.0); PLATELET COUNT 247 thou/uL (150-400); RBC 2.71 mil/uL (4.50-6.00); RDW 15.5 % (10.5-14.5); WBC 12.6 thou/uL (4.0-11.0)
[2019-04-06 11:29] LABS: ABSOLUTE NEUTROPHILS 5.9 thou/uL (1.4-8.2); METAMYELOCYTES 1 %
[2019-04-06 11:30] LABS: ANISOCYTOSIS 1+
[2019-04-06 11:37] LABS: INR 2.4; PROTIME 25.3 Seconds (9.3-11.4)
[2019-04-06 12:49] VITALS: BP 120/49
[2019-04-06] MEDS ORDERED: CEFUROXIME500 MG PO (13:11)
--- NOTE | 2019-04-06 14:27 | NUR ---
PT DISCHARGING TODAY BACK TO [facility] FAXED DC ORDERS/SUMMARY TO FACILITY SPOKE WITH DOMINIK IN ADM SHE RECEIVED DC ORDERS. ARRANGED TRANSPORTATON BY AMBULANCE TODAY AT 1700. LEFT MSG WITH PT'S (MADELIN) OF DC AND TIME OF TRANSPORT. UNIT NOTIFIED AND CHART COPY PER US. RN TO CALL REPORT TO [phone]
--- NOTE | 2019-04-06 16:15 | NUR ---
ASSESSMENT CHARTED - MEDS PER MAR - PT GIVEN MAG THIS AM DUE TO LOW MAG 1.7. MARY DIET AND FLUIDS WITH NO CO'S OF NAUSEA. NO CO'S OF PAIN - ATTEMPTED TO TURN PATIENT OFF BOTTOM, MUCH ENCOURAGMENT AND WOULD WIGGLE BACK ON BOTTOM. TESTING COMPLETED THIS JEAN CLAUDE. PT TO RETURN TO [facility] THIS EVENING TO CONTINUE THERAPY. NO CO'S AT THE PRESENT TIME.
[2019-04-06 17:14] VITALS: BP 110/53
--- NOTE | 2019-04-06 17:46 | NUR ---
Pt dcing back to snf at [facility]. They got updated auth from [facility]. Pt to resume his normal outpt dialysis schedule. DC office workforce planner faxed orders to [facility] and the dialysis clinic. [facility] was arranged for a 5pm transport and the pt's was notified.
--- NOTE | 2019-04-06 18:17 | NUR ---
PT LEFT UNIT [facility] ON STRETCHER. REPORT CALLED TO RECEIEVING FACILITY EARLIER THIS AFTERNOON. NO CO'S AT TIME OF D/C.
--- NOTE | 2019-04-07 07:40 | HC ---
[facility] [place] [address] CONSULTATION Name: BELTRAN SPICER EDER Room #: 214-P [facility] Hummel#: [id number] Admission: 04/06/19 ������������������ Attend Phys: Jalen Rod MD Discharge: 04/06/19 ������������������ Date of : 38 Report #: [id number] THIS REPORT FOR: //name// CC: Ying Rod DATE OF SERVICE: 04/06/2019 REASON FOR THE CONSULTATION: End-stage renal disease. REASON FOR THE PRESENTATION: Chest pain. HISTORY OF PRESENT ILLNESS: An 79-year-old with multiple comorbid conditions including end-stage renal disease, hypertension, diabetes mellitus, prostate cancer, recent decortication for left pleural effusion, peripheral vascular disease, cardiomyopathy, coronary artery disease, post coronary artery bypass graft. He presented after his hemodialysis reporting that he has been having some chest pain. He describes the chest pain as central with no radiation. This was associated with some nausea. He also had some sweating. The patient has an end-stage renal disease, was maintained on dialysis every Tuesday, and Tuesday. He was recently discharged from this facility after being treated for recurrent pleural effusion. I am being consulted to manage his end-stage renal disease. PAST MEDICAL HISTORY: 1. End-stage renal disease. 2. Diabetes mellitus. 3. Hypertension. 4. Coronary artery disease. 5. Peripheral vascular disease. 6. Cardiomyopathy. 7. TIA. 8. Hyperlipidemia. 9. Anemia. 10. Recurrent pleural effusion, status post decortication. MEDICATIONS: 1. Atorvastatin. 2. Levothyroxine. 3. Gabapentin. 4. Doxycycline. ALLERGIES: None. REVIEW OF SYSTEMS: [facility] [address] [place] [address] CONSULTATION Name: BELTRAN SPICER [facility] Room #: 214-P [facility] Nikhil Hummel#: [id number] Admission: 04/06/19 ������������������ Attend Phys: Jalen Rod MD Discharge: 04/06/19 ������������������ Date of : 38 Report #: [id number] GENERAL: Significant for weakness. CARDIOVASCULAR: Chest pain. No palpitation. PULMONARY: Significant for shortness of breath. GASTROINTESTINAL: No nausea or vomiting. GENITOURINARY: No frequency, no urgency. MUSCULOSKELETAL: Occasional back pain and myalgias. PAST SURGICAL HISTORY: 1. AV fistula. 2. Recent decortications. PHYSICAL EXAMINATION: VITAL SIGNS: Blood pressure is marginal at 89/47. HEAD AND NECK: No jugular venous distention. CHEST: Decreased air entry bilaterally. CARDIOVASCULAR: No rub. ABDOMEN: Soft, nontender. EXTREMITIES: Lower Extremities: +3 edema. Upper Extremities: Left AV fistula. LABORATORY VALUES: Reviewed. Sodium 137, potassium 3.9, BUN 27, creatinine 3.4. IMPRESSION AND PLAN: 1. End-stage renal disease. 2. Hypotension. 3. Chest pain. 4. Diabetes mellitus. 5. Coronary artery disease. 6. Peripheral vascular disease. 7. Recent pleural effusion with recurrent thoracentesis requiring decortication. 8. Hypothyroidism. 9. Known atrial fibrillation. 10. We will arrange for the patient to have his usual dialysis every Tuesday, and Tuesday. 11. Chest pain per primary team. 12. Start the patient on midodrine given his blood pressures to help with the dialysis. 13. We will continue to follow. ��������������������������������������������� <ELECTRONICALLY SIGNED> ���������������������������������������� By: Aisha Maloney MD ��������������������������������������������� 04/07/19 0740 [id number] Aisha Maloney MD /nt
[2019-04-09] MEDS ORDERED: CEFUROXIME500 MG (21:13)
== END 2019-04-06 18:18 ==
LOC: 2N 01:12
PROVIDERS: Nurse Practitioner Acute Care; ADMIT Internal Medicine
DX: J90 Pleural effusion, not elsewhere classified (principal); R07.89 Other chest pain; E11.22 Type 2 diabetes mellitus with diabetic chronic kidney disease; E11.51 Type 2 diabetes mellitus with diabetic peripheral angiopathy without gangrene; I13.2 Hypertensive heart and chronic kidney disease with heart failure and with stage 5 chronic kidney disease, or end stage renal disease; I50.22 Chronic systolic (congestive) heart failure; N18.6 End stage renal disease; I25.10 Atherosclerotic heart disease of native coronary artery without angina pectoris; I48.2 Chronic atrial fibrillation; E03.9 Hypothyroidism, unspecified; D64.9 Anemia, unspecified; I42.9 Cardiomyopathy, unspecified; G45.9 Transient cerebral ischemic attack, unspecified; E78.5 Hyperlipidemia, unspecified; R53.81 Other malaise; Z86.718 Personal history of other venous thrombosis and embolism; Z85.46 Personal history of malignant neoplasm of prostate; Z95.1 Presence of aortocoronary bypass graft; Z99.2 Dependence on renal dialysis; Z79.01 Long term (current) use of anticoagulants; Z79.899 Other long term (current) drug therapy